=== PATIENT | female | born 1980 | race Two or more races ===

== ENCOUNTER 2021-01-27 12:19 | Emergency (ER) | payer SELFPAY ==
[~2021-01-27] VITALS: Ht 165.1 cm; Wt 80.0 kg
[2021-01-27 12:22] VITALS: BP 125/89
[2021-01-27] MEDS ORDERED: LIDOCAINE-MPF 1%, 5ML ONE ×2 (12:25→13:18)
[2021-01-27] MEDS ORDERED: LIDOCAINE-MPF 1%, 5ML INFIL ONE (13:30)
[2021-01-27] MEDS ORDERED: NEOSPORIN OINT. PKT 1 PACKET ONE (14:25)
== END 2021-01-27 14:49 | disposition home or self-care (01) ==
LOC: ED 14:30
DX: S61.214A Laceration without foreign body of right ring finger without damage to nail, initial encounter (principal); X58.XXXA Exposure to other specified factors, initial encounter; Y93.89 Activity, other specified; Y92.009 Unspecified place in unspecified non-institutional (private) residence as the place of occurrence of the external cause; Y99.8 Other external cause status
CPT/HCPCS: 12042; 99284

== ENCOUNTER 2021-06-19 17:07 | Emergency (ER) | payer SELFPAY ==
[~2021-06-19] VITALS: Ht 165.1 cm; Wt 86.2 kg
[2021-06-19 17:30] VITALS: BP 176/118
== END 2021-06-19 17:59 | disposition home or self-care (01) ==
LOC: ED 17:12
DX: R51.9 Headache, unspecified (principal); R05 Cough; Z20.822 Contact with and (suspected) exposure to COVID-19
CPT/HCPCS: 99283; U0003; U0005